=== PATIENT | female | born 2005 | race African-American/Black ===

== ENCOUNTER 2024-11-17 05:14 | Emergency (ER) | payer OTHER ==
[2024-11-17 05:33] VITALS: BP 119/71; PULSE 85; RESP 18; TEMP 98.2; BMI 28.3
== END 2024-11-17 06:53 | disposition home or self-care (01) ==
LOC: JER 05:14
DX: M25.561 Pain in right knee (principal); X50.1XXA Overexertion from prolonged static or awkward postures, initial encounter
CPT/HCPCS: 73562-TC-RT-FY; 99283-25